=== PATIENT | female | born 1965 | race Caucasian/White ===

== ENCOUNTER 2019-12-17 16:27 | Emergency (ER) | payer SELFPAY ==
[2019-12-17 17:07] LABS: Hemoglobin 14.7 g/dL (12.0-16.0); Mean Corpuscular HGB CONC 33.7 g/dL (32.0-36.0); Mean Corpuscular Hemoglobin 34.8 pg (27.0-31.0); Mean Platelet Volume 8.4 fL (7.4-10.4); Platelet Count 191 thou/uL (130-400); RBC Distribution Width 11.7 % (11.5-14.5); Red Blood Cell (RBC) Count 4.21 mill/uL (4.20-5.40); White Blood Cell (WBC) Count 10.8 thou/uL (4.8-10.8)
[2019-12-17 17:27] LABS: Band 43 % (5-11); Lymphocytes 4 % (21-51); MDiff Complete? YES; Macrocytosis SLIGHT = 6-15 cells (100X) (0-5/hpf); Monocytes 3 % (0-10); Neutrophil 46 % (42-75); Platelet Morphology Comment Appears Adequate; Polychromasia SLIGHT = 2-3 cells (100X) (0-2/hpf); Reactive Lymphocytes 4 % (0-10); Reflex for Review?? YES
--- NOTE | 2019-12-17 17:28 | CT ---
CT ABDOMEN AND PELVIS WITHOUT CONTRAST: 12/17/19 PROVIDED CLINICAL HISTORY: Abdominal pain and urinary retention. FINDINGS: The visualized lung bases are free of significant opacity. There is conspicuous mural thickening involving the mid sigmoid colon with surrounding inflammatory f at stranding changes. There is free intraperitoneal fluid present within the pelvis and free intraper itoneal fluid present about the right hepatic margin cranially. There is no definite evidence for ext raluminal gas. There is no evidence for pneumoperitoneum. Evaluation for abscess is limited in the ab sence of oral and IV contrast material. The osseous structures demonstrate no concerning lytic or blastic lesions. Scattered vascular calcifi cations are seen. The solid abdominal organs are suboptimally evaluated in the absence of IV contrast material but demonstrate an unremarkable unenhanced CT appearance. IMPRESSION: Findings compatible with sigmoid diverticulitis. POS: [facility]
[2019-12-17 17:31] LABS: ALT (SGPT) 16 U/L (8-55); AST (SGOT) 17 U/L (5-34); Albumin 4.5 g/dL (3.5-5.0); Alkaline Phosphatase 72 U/L (40-110); Anion Gap 18 mmol/L (10-20); BUN (Urea Nitrogen) 7 mg/dL (9.8-20.1); Calc. Creatinine Clearance 0 mL/min (70-130); Calcium 9.5 mg/dL (7.8-10.44); Carbon Dioxide 24 mmol/L (22-29); Chloride 97 mmol/L (98-107); Estimated GFR-MDRD 84; Globulin 2.2 g/dL (2.4-3.5); Glucose 99 mg/dL (70-105); Potassium 3.6 mmol/L (3.5-5.1); Protein, Total 6.7 g/dL (6.0-8.3); Sodium 135 mmol/L (136-145)
[2019-12-17 17:40] LABS: Bilirubin Negative (Negative); Blood, Urine Negative (Negative); Clarity Clear (Clear); Glucose, Urine (Dipstick) Normal (Negative); Leukocyte Negative Leu/uL (Negative); Nitrite Negative (Negative); Protein, Urine (Dipstick) Negative (Neg-Trace); Urobilinogen Normal mg/dL (Less than 2)
== END 2019-12-17 18:20 | disposition home or self-care (01) ==
LOC: ERS 16:27
DX: K57.32 Diverticulitis of large intestine without perforation or abscess without bleeding (principal); R33.9 Retention of urine, unspecified; E78.2 Mixed hyperlipidemia; F17.210 Nicotine dependence, cigarettes, uncomplicated; Z79.899 Other long term (current) drug therapy
CPT/HCPCS: 36415; 51702; 74176; 80053; 81003; 85025; 85060; 87086